=== PATIENT | male | born 1975 | race Caucasian/White ===

== ENCOUNTER 2017-01-31 06:46 | Day surgery (SDC) | payer OTHER ==
[~2017-01-31 06:46] MED LIST: RINGERS SOLUTION,LACTATED 1,000 ML IV PRN
[2017-01-31] MEDS ORDERED: RINGERS SOLUTION,LACTATED 1,000 ML IV ONE (07:27)
--- NOTE | 2017-01-31 09:09 | OR ---
Operative Report - Dictated Report Narrative: Date: 01/31/2017 PREOP: GERD, Abdominal pain, blood in BM POSTOP: Duodenitis, gastritis, esophagitis, small hiatal hernia. Normal Colon PROC: EGD with biopsy, total colonoscopy SURG: Gabe Gan MD ANESTH: MAC per PAPER TUBE MACHINE OPERATOR EBL: minimal SPECIMEN: CLOtest, Antral biopsy DESCRIPTION: After informed consent a bite block was inserted and IV sedation was administered per PAPER TUBE MACHINE OPERATOR. Flexible video endoscope was inserted through the bite block, through the posterior pharynx and into the esophagus under direct vision. The scope was then advanced through the esophagus, stomach and into the duodenum. The duodenum was inflamed without ulceration. The scope was withdrawn into the stomach. Mild gastritis was noted. A CLOtest biopsy and antral biopsy was performed. The body of the stomach was inspected and showed gastritis. Retroflexion of the scope within the stomach revealed a small hiatal hernia. Endoscope was withdrawn into the distal esophagus with mild esophagitis noted. The remainder of the esophagus was unremarkable. Recommend ongoing acid suppression. Repeat EGD will be PRN. The patient was then rolled to the left lateral decubitus position. A flexible fiberoptic video colonoscope was introduced and advanced under direct vision without difficulty to the cecum. The usual landmarks were identified. Preparation was excellent and excellent views were obtained. The findings were of a normal cecum, ascending colon, hepatic flexure, transverse colon, splenic flexure, descending colon, sigmoid colon, and rectum. The mucosal color, vasculature and texture were normal throughout. No suspicious masses were seen. The patient tolerated the procedures well without apparent complications and was discharged from the endoscopy suite in stable condition.
[2017-01-31] MEDS ORDERED: PANTOPRAZOLE SODIUM 40 MG TABLET.EC PO ONE (10:00)
[2017-01-31 10:05] VITALS: BP 133/81
== END 2017-01-31 06:47 | disposition home or self-care (01) ==
LOC: AMB 06:46
PROVIDERS: ATTEND Specialist
PROC: 0DJD8ZZ Inspection of Lower Intestinal Tract, Via Natural or Artificial Opening Endoscopic (ICD-10-PCS; principal; 2017-01-31 08:00)
PROC: 0DB68ZX Excision of Stomach, Via Natural or Artificial Opening Endoscopic, Diagnostic (ICD-10-PCS; 2017-01-31 08:00)
DX: Z12.11 Encounter for screening for malignant neoplasm of colon (principal); K29.80 Duodenitis without bleeding; K44.9 Diaphragmatic hernia without obstruction or gangrene; K29.70 Gastritis, unspecified, without bleeding; K21.0 Gastro-esophageal reflux disease with esophagitis; R19.4 Change in bowel habit; Z68.31 Body mass index [BMI] 31.0-31.9, adult
CPT/HCPCS: 43239; 87081; G0121

== ENCOUNTER 2017-02-24 06:55 | Day surgery (SDC) | payer OTHER ==
[~2017-02-24 06:55] MED LIST changes: +ceFAZolin SODIUM 2 GM in DEXTROSE 5 % IN WATER 50 ML IV PRN
[2017-02-24] MEDS ORDERED: RINGERS SOLUTION,LACTATED 1,000 ML IV ONE (07:30)
[2017-02-24] MEDS ORDERED: ceFAZolin SODIUM 1 GM VIAL IV ONE (08:30)
[2017-02-24] MEDS ORDERED: BUPIVACAINE HCL/EPINEPHRINE 50 ML VIAL IJ ONE (08:40)
--- NOTE | 2017-02-24 09:12 | OR ---
Operative Report - Dictated Report Narrative: Date: 02/24/2017 Preoperative diagnosis: Reducible umbilical hernia Postoperative diagnosis: Same Procedure: Primary repair of umbilical hernia Staff surgeon: Gabe Gan MD Anesthesia: Local/MAC EBL: minimal Specimens: none Complications: none apparent Description: Pt placed in supine position. Abdomen prepped and draped in a sterile fashion. Field block performed around umbilicus. Supraumbilical incision carried out and dissection take to abdominal wall. Hernia sac was opened and fascial rim cleaned. Hernia contents, mostly fat, reduced. Defect measured 15mm and was closed with interrupted [id number] 0 prolene suture. Incision was closed with interrupted subcuticular 4-0 vicryl and sealed with dermabond. Patient tolerated procedure well and was discharged from OR in stable condition.
[2017-02-24] MEDS ORDERED: HYDROcodone/ACETAMINOPHEN 1 EACH TABLET PO PRN (09:16)
[2017-02-24 10:58] VITALS: BP 122/68
[2017-02-24] MEDS ORDERED: IBUPROFEN 800 MG TABLET PO SCH (13:00)
== END 2017-02-24 06:56 | disposition home or self-care (01) ==
LOC: AMB 06:55
PROVIDERS: ATTEND Specialist
PROC: 0WQF0ZZ Repair Abdominal Wall, Open Approach (ICD-10-PCS; principal; 2017-02-24 08:00)
DX: K42.9 Umbilical hernia without obstruction or gangrene (principal); K21.9 Gastro-esophageal reflux disease without esophagitis; R19.4 Change in bowel habit; Z68.31 Body mass index [BMI] 31.0-31.9, adult

== ENCOUNTER 2020-05-21 18:32 | Observation (INO) ==
[2020-05-21 13:34] LABS: Albumin * 4.1 gm/dl (3.4-5.0); Ca. Corrected For Albumin 10.3 mg/dL (8.4-10.2); Calcium * 10.7 mg/dL (7.9-10.9); Total Protein 8.8 gm/dL (6.2-8.2)
[2020-05-21] MEDS: RINGER'S SOLUTION,LACTATED 1,000 ML IV PRN ×3 (17:19→20:47)
--- NOTE | 2020-05-21 17:22 | ANES ---
Anesthesia Pre Procedure Eval Vitals/Labs: Last Vital Signs Temp 35.9 C L 05/21/20 16:58 Pulse 123 H 05/21/20 16:58 Resp 16 05/21/20 16:58 BP 140/112 H 05/21/20 16:58 Pulse Ox 98 05/21/20 16:58 HOME MEDICATIONS L.acidoph,Paracasei, B.lactis [Probiotic] 1 ea PO DAILY 01/09/17 [Last Taken Unknown] traMADol HCL [Ultram] 50 - 100 mg PO QID PRN #8 tab 05/18/20 [Last Taken Unknown] Doxycycline Hyclate [Morgidox] 100 mg PO BID PRN 05/21/20 [Last Taken Unknown] Famotidine [Pepcid] 20 mg PO BID PRN 05/21/20 [Last Taken Unknown] lansoprazole 15 mg capsule,delayed release 15 mg PO DAILY 05/21/20 [Last Taken Unknown] oxycodone-acetaminophen 5 mg-325 mg tablet 1 tab PO Q6H PRN #30 tab 05/21/20 [La st Taken Unknown] Allergies/Adverse Reactions: Allergies Allergy/AdvReac Type Severity Reaction Status Date / Time Sulfa (Sulfonamide Allergy Mild Hives Verified 05/21/20 10:59 Antibiotics) adhesive tape Allergy rash Verified 05/21/20 10:59 minocycline AdvReac Mild DARK Verified 05/21/20 10:59 URINE, DOES FEEL WELL - Planned Procedure Planned Procedure: laparoscopic cholecystectomy Medication List Reviewed:: Yes Allergies Verified: Yes Medical History (Last Reviewed 05/21/20 @ 17:21 by Philip Fields CRNA) Strain of lumbar paraspinous muscle (Resolved) History of gastroesophageal reflux (GERD) Surgical History (Last Reviewed 05/21/20 @ 17:21 by Philip Fields CRNA) H/O umbilical hernia repair Onset Date: 02/24/17 Elvia History of colonoscopy Onset Date: 01/31/17 Tommeraasen-negative. History of esophagogastroduodenoscopy (EGD) Onset Date: 01/31/17 Tomlizethaasen-clotest negative, minimal benign reactive gastropathy/chemical gastritis. History of skin cancer Onset Date: ~11/2016 2006 right shoulder. 11/2016 top of head-basal cell. S/P epidural steroid injection Onset Date: 03/08/16 L4-5 Family History (Last Reviewed 05/21/20 @ 17:21 by Philip Fields CRNA) Father Psoriasis Cancer prostate ca, lung ca Mother Hyperlipemia Serafin's disease Celiac disease Brother Alive and well 2 brothers Sister Obesity Grandfather Cancer maternal-lung ca Uncle Cancer prostate ca Pancreatic cancer - Family Anesthesia History Family History:: no untoward family reactions to anesthesia - Airway/Neck/Teeth Within Normal Limits:: Yes Teeth Condition: intact Neck Exam: full range of motion Mallampatti Score: 2 Thyromental (T-M) distance: > 6 cm Mandibulo Hyoid distance: > 3 cm - Respiratory Respiratory Physical: lungs clear Smoking Status: Never smoker Sleep Apnea currently treated: No Sleep Apnea by current assessment: No - Cardiovascular Tolerate Activity: Good Heart Sounds: S1 & S2, Regular - Gastrointestinal NPO since: 0600 - Anesthesia Assessment and Plan ASA Class: PS, II, E Anesthesia Type Plan: General ET Planned difficult intubation/equipment available: No
[~2020-05-21 18:32] MED LIST changes: +BUPIVACAINE HCL/EPINEPHRINE 50 ML VIAL IJ PRN; +BUPIVACAINE HCL/EPINEPHRINE 50 ML VIAL ONE; +GLYCOPYRROLATE 0.2 MG/ML VIAL ONE; +ISOPROPYL ALCOHOL 480 APPL BTL MC ONE; +KETOROLAC TROMETHAMINE 30 MG/ML VIAL ONE; +MORPHINE SULFATE 4 MG/ML SYRG IV PRN; +MORPHINE SULFATE 4 MG/ML SYRG ONE; +MUPIROCIN 22 APPL TUBE TP ONE; +NEOSTIGMINE METHYLSULFATE 1 MG/ML VIAL ONE; +ONDANSETRON HCL/PF 2 MG/ML VIAL ONE; +PROPOFOL VIAL IV ONE; -RINGERS SOLUTION,LACTATED 1,000 ML IV PRN; +ROCURONIUM BROMIDE 10 MG/ML VIAL ONE; +ceFAZolin SODIUM 1 GM VIAL IV PRN; +ceFAZolin SODIUM 1 GM VIAL ONE; -ceFAZolin SODIUM 2 GM in DEXTROSE 5 % IN WATER 50 ML IV PRN; +diphenhydrAMINE HCL 50 MG/ML VIAL ONE; +fentaNYL CITRATE/PF 50 MCG/ML AMPUL ONE
[2020-05-21] MEDS ORDERED: MUPIROCIN 22 APPL TUBE TP ONE (19:23)
--- NOTE | 2020-05-21 20:02 | ANES ---
Post Anesthesia Assessment - Vital Signs Vitals: Last Vital Signs Temp 36.4 C 05/21/20 20:00 Pulse 96 05/21/20 20:00 Resp 12 05/21/20 20:00 BP 155/106 H 05/21/20 20:00 Pulse Ox 99 05/21/20 20:00 Airway Patency: Normal - Mental Status Level Of Consciousness: Awake - Pain Level Pain Score: 0 - N/V Assessment Nausea/Vomiting Presence: None Dehydration:: No
--- NOTE | 2020-05-21 20:02 | ANES ---
Post Anesthesia Discharge - Transfer of Care Transfer of Care handoff given to nurse: Yes - Discharge from PACU Discharge from PACU when meets criteria: Yes
[2020-05-21] MEDS ORDERED: ONDANSETRON HCL/PF 2 MG/ML VIAL IV PRN (20:04)
[2020-05-21] MEDS ORDERED: HYDROmorphone HCL 1 MG/ML DISP.SYRIN IV PRN (20:04)
[2020-05-21] MEDS ORDERED: PANTOPRAZOLE SODIUM 40 MG in NORMAL SALINE 100 ML IV ONE (20:08)
--- NOTE | 2020-05-21 20:17 | OR ---
Operative Report - Dictated Report Narrative: DATE OF OPERATION: 05/21/2020 PREOPERATIVE DIAGNOSIS: Acute cholecystitis. Cholelithiasis POSTOPERATIVE DIAGNOSIS: Severe acute cholecystitis. Cholelithiasis OPERATION: Laparoscopic cholecystectomy SURGEON: ISAIAS Mariano MD ANESTHESIA: General endotracheal Flip Fields CRNA INDICATIONS FOR PROCEDURE: The patient is a 44-year-old male who initially presented to the emergency room on 05/17/2020 with right upper quadrant pain. He was found to have ultrasound evidence of gallstones with elevated AST and ALT. He has continued to have discomfort. He was seen in the office today and an HB scan obtained revealing evidence of cystic duct obstruction. He is brought for cholecystectomy. FINDINGS: Severe acute cholecystitis with cholelithiasis NARRATIVE OF PROCEDURE: The patient was identified preoperatively. Prior to the administration of anesthetic a multidisciplinary timeout observed. With the patient in the supine position, SCDs were placed, IV Ancef administered, and general endotracheal anesthetic administered. The patient's abdomen was prepped with Betadine solution and a generous operating field outlined with 4 sterile towels. The remainder the patient was covered with a sterile disposable drape. An infraumbilical skin incision was made. Dissection was carried along the umbilical stalk until the fascia of the linea alba was encountered. This was incised. The peritoneum was then elevated and incised to allow entry into the abdomen under direct vision. A Hussan cannula was placed, and the abdomen insufflated with CO2. The laparoscopic camera was introduced and the abdomen briefly explored. Inflamed omentum was seen over the expected location of the gallbladder with adhesions to the anterior abdominal wall. Those portions of the liver, stomach, small and large intestine visualized appeared normal. Next under direct vision 3 additional working ports were inserted through separate skin incisions, one in the subxiphoid, one in the right upper quadrant, and one in the right flank. The omentum over the gallbladder was liberated from the anterior abdominal wall by blunt dissection. By a combination of blunt and hydrostatic dissection the apex of the gallbladder was exposed. It was found to be acutely inflamed and tensely distended. The gallbladder was decompressed with a needle revealing clear bile. The puncture site was grasped. The apex of the gallbladder was retracted cephalad. The adherent omentum along the body and neck of the gallbladder was gradually bluntly dissected free revealing the expected location of the cystic duct. The cystic duct was dissected free for a sufficient distance for confident identification. It was doubly clipped and divided. The cystic artery was identified doubly clipped and divided. The gallbladder was then removed from the liver bed by retrograde electrocautery dissection. There was intense edema and inflammation. Prior to severing the last attachments of the gallbladder the liver bed was inspected and found to be hemostatic with no evidence of bile leak. The previously placed clips were seen to be intact. The right upper quadrant was suctioned clean. The last attachments of the gallbladder were divided. It was placed in an Endobag and parked in the right upper quadrant. The smaller working ports were withdrawn under direct vision to ensure entry site hemostasis. The gallbladder was removed in conjunction with the Hussan cannula. The pneumoperitoneum was allowed to escape, and after receiving a correct sponge needle and instrument count attention was turned to closing the abdomen. The fascia and peritoneum at the umbilicus were approximated with interrupted sutures of antibiotic containing #1 Vicryl. Free Betadine was allowed to information security officer the umbilical incision while the port sites were closed. Port site incisions were approximated with interrupted vertical mattress sutures of 4-0 nylon. The umbilical incision was then irrigated with saline and the subcutaneous tissue approximated with a pursestring suture of 2-0 chromic. The umbilical incision was closed with interrupted vertical mattress sutures of 4-0 nylon. The operative sites were washed and dried. Dressings of Bactroban ointment and Mepilex borders were applied to the small port sites. The umbilical incision was dressed with Bactroban ointment, 2 x 2, and a Mepilex border. The operative procedure was terminated at this point. The patient tolerated the anesthetic and procedure well without complication. There was no measurable blood loss. The gallbladder was submitted to pathology. 0.5% Marcaine with epinephrine was used for local anesthetic infiltration. The patient was transferred to the recovery room awake, extubated, and in stable condition. The patient will require admission to observation status for additional IV fluids, IV antibiotics, and IV pain medication. reviewed and electronically signed
[2020-05-21] MEDS: oxyCODONE HCL/ACETAMINOPHEN 1 TAB TABLET PO PRN (20:43)
[2020-05-21] MEDS ORDERED: KETOROLAC TROMETHAMINE 15 MG/ML VIAL IV ONE (21:08)
[2020-05-21] MEDS ORDERED: RINGER'S SOLUTION,LACTATED 1,000 ML IV PRN (23:55)
[2020-05-22] MEDS: oxyCODONE HCL/ACETAMINOPHEN 1 TAB TABLET PO PRN ×2 (00:52→08:29)
[2020-05-22] MEDS: ceFAZolin SODIUM 1 GM in DEXTROSE 5 % IN WATER 100 ML IV SCH ×6 (01:41→08:35)
--- NOTE | 2020-05-22 08:25 | PN ---
Dictated Progress Note - Date and Time Seen: Date: 05/22/20 Time: 08:23 - Progress Note Narrative: Vital Signs - Last Taken Temp 36.4 C 05/21/20 20:20 Pulse 106 H 05/22/20 04:56 Resp 18 05/22/20 02:00 BP 135/85 05/22/20 04:56 Pulse Ox 97 05/22/20 04:56 Abnormal/Pending Laboratory Last 24 HRS 05/21/20 12:56 Anion Gap 14.0 H Random Glucose 111 H Calcium Adj for Albumin 10.3 H ALT 195 H Total Protein 8.8 H POD#1 laparoscopic cholecystectomy for severe acute cholecystitis States pain is virtually resolved. BP down to normal. Has ambulated and tolerated po intake. Will hep lock IV for additional antibiotics, encourage OOB with D/C later today.
[2020-05-22] MEDS ORDERED: CEFAZOLIN SODIUM/DEXTROSE,ISO 1 GM/50 ML BAG IV SCH (08:30)
--- NOTE | 2020-05-22 11:51 | DS ---
(1) Cholelithiasis Problem: Acute Qualifiers: Cholelithiasis location: gallbladder Cholecystitis presence: with cholecystitis Cholecystitis acuity: acute Biliary obstruction: without biliary obstruction Qualified Code(s): K80.00 - Calculus of gallbladder with acute cholecystitis without obstruction Date of Discharge:: 05/22/20 Hospital Course: He underwent laparoscopic cholecystectomy for severe acute cholecystitis and cholelithiasis on 05/21/2020. He was placed in observation status for additional IV antibiotics, IV pain medication, and IV fluids. By the morning of the first postoperative day his pain was virtually resolved with exception of incisional discomfort which was controlled with Percocet. He was able to tolerate advance diet, was able to ambulate without assistance, and his dressings remained dry. I explained the operation to him he was given copies of the photographs which appear in the medical record. He will be discharged home with instructions not to lift or engage in hazardous activity. He may shower in 48 hours and change the dressings as needed to keep the areas dry. A return office appointment will be made for 1 week. A prescription for Percocet 5/325 mg was transmitted electronically. He has phone numbers to call for questions or concerns Procedures Performed: see notes below - Laparoscopic cholecystectomy Results and Findings: Lab Pending Results 05/21/20 12:56: Sodium 137, Plasma Sodium 137, Potassium 4.0, Chloride 97, Car bon Dioxide 30.0, Anion Gap 14.0 H, BUN 12, Creatinine 1.09, Est GFR (Non-Af Amer) 79, BUN/Creatinine Ratio 11.0, Random Glucose 111 H, Calcium 10.7, Calcium Adj for Albumin 10.3 H, Total Bilirubin 1.0, AST 29, ALT 195 H, Alkaline Phosphatase 124, Total Protein 8.8 H, Albumin 4.1 05/21/20 15:30: SARS-CoV-2 (PCR) Not detected 05/21/20 19:33: Pathology Specimen Spec to path Discharge Location: Home Disposition: Home self-care Condition: Good Discharge Activity: Activity as tolerated, No Lifting Discharge Diet: General/regular food Referrals: Florencia Galvez FNP [Primary Care Provider] - Problem Oriented Discharge Instructions to Patient/Family: Laparoscopic Cholecystectomy, Care After Complete Home Medications List: Complete Home Medication List: L.acidoph,Paracasei, B.lactis [Probiotic] 1 ea PO DAILY 01/09/17 Doxycycline Hyclate [Morgidox] 100 mg PO BID PRN 05/21/20 Famotidine [Pepcid] 20 mg PO BID PRN 05/21/20 lansoprazole 15 mg capsule,delayed release 15 mg PO DAILY 05/21/20 oxycodone-acetaminophen 5 mg-325 mg tablet 1 tab PO Q6H PRN #30 tab 05/21/20
[2020-05-22 13:57] VITALS: BP 124/79
[2020-05-23] MEDS ORDERED: ceFAZolin SODIUM 1 GM in DEXTROSE 5 % IN WATER 100 ML IV SCH ×2 (02:00)
== END 2020-05-22 12:05 | disposition home or self-care (01) ==
LOC: AMB 18:32 → MS 18:32
PROVIDERS: ADMIT Surgery; ATTEND Surgery
DX: K80.12 Calculus of gallbladder with acute and chronic cholecystitis without obstruction